=== PATIENT | male | born 1990 | race Caucasian/White ===

== ENCOUNTER 2022-10-04 21:34 | Emergency (ER) | payer OTHER, SELFPAY ==
[2022-10-04 21:45] VITALS: BP 129/70; PULSE 84; RESP 22; TEMP 36.2; O2SAT 98; BMI 45.2
--- NOTE | 2022-10-04 21:53 | ED_ITS ---
HPI - Abdominal Pain General Time Seen by Provider: 21:53 Date Seen: 10/04/22 Chief Complaint: Abdominal Pain Stated Complaint: Abdominal pain, L arm numbness Time Seen by Provider: 10/04/22 21:53 Source: patient and RN notes reviewed Mode of arrival: ambulatory Limitations: no limitations History of Present Illness HPI narrative: Patient is a 32-year-old male with history of kidney stones who comes to the emergency room for evaluation regarding the sudden onset of left lower quadrant pain and nausea. Patient notes a past history of kidney stones. He thinks this is similar but is not entirely sure. He notes that this pain is radiating into his left back in into his groin. When this happens he is writhing in pain. He has also had associated vomiting. He has not had any fever chills or dysuria. He has not noticed any blood in his urine. Patient's pain came on suddenly at approximately 2100 hours. He has not been able to take anything for pain. Related Data Allergies Allergy/AdvReac Type Severity Reaction Status Date / Time topiramate [From Topamax] AdvReac Verified 10/04/22 21:49 pomagranite AdvReac Uncoded 10/04/22 21:49 Review of Systems Status of ROS Reports: 6 or more systems reviewed and unremarkable except as noted in History and below Const Denies: fever or chills Cardio Denies: chest pain or shortness of breath with exertion Resp Denies: shortness of breath GI Reports: abdominal pain, nausea and vomiting; Denies: diarrhea Denies: painful urination or urinary frequency Musculo Reports: back pain PFSH PFSH Social History Smoking Status: Never smoker Do you use any of these nicotine containing products: None How often do you have a drink containing alcohol: never AUDIT-C Alcohol total score: 0 Non-prescribed substance use: denies use Exam Narrative: Exam Narrative: Patient is awake and in distress. He is trying to find a comfortable position as ruling out around the bed. Eyes are clear oral cavity moist mucous membranes. Heart rate tachycardic with normal rhythm lungs are clear bilaterally. Abdomen shows no tenderness with palpation. No CVA tenderness with percussion. Const: Vital Signs, click to edit/add: Vital Signs - 24 hr 10/04/22 21:45 10/04/22 23:00 10/04/22 23:21 Temperature 97.1 F L 98.4 F Pulse Rate [Pulse Oximeter] 84 71 Respiratory Rate 22 16 Blood Pressure [[facility]] 129/70 126/83 Pulse Oximetry 98 94 98 Oxygen Delivery Me thod Room Air Room Air Documenting provider has reviewed patient's vital signs: yes Course Course Hospital Course: Will place an IV and give Toradol 15 mg, Zofran 4 mg, 500 mL of normal saline. CT of the abdomen without contrast will be ordered. Urinalysis, CBC and basic panel is also ordered at this time. Reevaluation(s) Reevaluation #1: Patient noted to have continued pain and thus was given morphine 4 mg IV. This seemed to help his pain significantly. Vital Signs Vital signs: Initial Vital Signs Temperature 97.1 F L 10/04/22 21:45 Temperature Source Temporal Artery Scan 10/04/22 21:45 Pulse Rate 84 10/04/22 21:45 Respiratory Rate 22 10/04/22 21:45 Blood Pressure 129/70 10/04/22 21:45 Blood Pressure Mean 89 10/04/22 21:45 Blood Pressure Position Sitting 10/04/22 21:45 Pulse Oximetry 98 10/04/22 21:45 Oxygen Delivery Method Room Air 10/04/22 21:45 Vital Signs Temperature 97.1 F L 10/04/22 21:45 Pulse Rate 84 10/04/22 21:45 Respiratory Rate 22 10/04/22 21:45 Blood Pressure 129/70 10/04/22 21:45 Pulse Oximetry 98 10/04/22 21:45 Oxygen Delivery Method Room Air 10/04/22 21:45 Temperature 98.4 F 10/04/22 23:00 Pulse Rate 71 10/04/22 23:00 Respiratory Rate 16 10/04/22 23:00 Blood Pressure 126/83 10/04/22 23:00 Pulse Oximetry 98 10/04/22 23:21 Oxygen Delivery Method Room Air 10/04/22 23:00 MDM - Abdominal Pain MDM Narrative Medical decision making narrative: 1. Left ureteral colic with nephrolithiasis-patient is a 3 mm stone with associated hydronephrosis. Urinalysis without evidence of UTI and laboratory values are reassuring. Patient has pain noted to be controlled with Toradol Zofran and morphine. However patient has pain return before departure and he was given Dilaudid 0.5 mg IV. Fortunately he should be able to pass this stone at 3 mm in size. He states he has most of the medications at home. He will use Toradol 10 mg p.o. 3-4 times daily for max of 5 days for any pain. He will strain his urine. Flomax may restarted at 1 tablet daily. He is in need of oxycodone and he states this is waiting uses for his pain. I have given him a small amount of 10 tablets oxycodone 5 mg to be use 1 tablet Q 6 hours p.r.n.. He is in agreement with this plan. Denies a history of addictions. Do note on his [employer] VERIFICATION ENGINEER that he had tramadol earlier in the year but it does not appear to be a pattern. 2. Disposition-home at this time. Return for vomiting, worsening symptoms. Strain urine. For ongoing symptoms follow-up with primary MD for further urological consultation. For worsening symptoms return to the emergency room. Spoke briefly about the content of his stones any states in the past they have been calcium. Good hydration is prominent believe the primary deterrent from formation of stones. Medical Records Attestation: I reviewed the patient's medical records. Lab Data Attestation: I reviewed the patient's lab results. Labs: Lab Results 10/04/22 10/04/22 Range/Units 21:50 22:30 WBC 10.84 (4.50-11.00) K/uL RBC 5.38 (4.30-5.90) m/uL Hgb 15.9 (13.5-17.5) gm/dL Hct 46.0 (37.0-53.0) % MCV 86 (80-100) fL MCH 30 (26-34) pg MCHC 35 (32-36) gm/dL RDW Coeff of Britney 11.4 L (11.5-15.5) % Plt Count 375 (140-440) K/uL Neut % (Auto) 45.9 (42.0-72.0) % Lymph % (Auto) 45.5 H (20-44) % Gosper % (Auto) 6.9 (0.0-11.0) % Eos % (Auto) 0.7 (0.0-7.0) % Baso % (Auto) 0.4 (0.0-3.0) % Neut # (Auto) 4.98 (1.7-7.0) K/uL Lymph # (Auto) 4.90 H (0.90-2.90) K/uL Gosper # (Auto) 0.70 (0.00-0.90) K/UL Eos # (Auto) 0.08 (0.00-0.50) K/uL Baso # (Auto) 0.04 (0.00-0.30) K/uL Sodium 138 (135-149) mmol/L Potassium 3.6 (3.6-5.1) mmol/L Chloride 102 (96-114) mmol/L Carbon Dioxide 26 (20-32) mmol/L BUN 16 (5-24) mg/dL Creatinine 0.9 (0.5-1.5) mg/dL Estimated Creat Clear 121.67 Estimated GFR 116 ml/min Glucose 117 H (60-115) mg/dL Calcium 9.6 (8.4-10.6) mg/dL Troponin I < 0.01 L (0.01-0.04) ng/mL Urine Color Yellow (Yellow) Urine Appearance Cloudy A (Clear) Urine pH 6.0 (5.0-8.5) Ur Specific [place] >= 1.030 (1.000-1.030) Urine Protein 2+ A (Negative) Urine Glucose (UA) Negative (Negative) Urine Ketones Negative (Negative) Urine Blood 3+ A (Negative) Urine Nitrite Negative (Negative) Urine Bilirubin Negative (Negative) Urine Urobilinogen 0.2 (0.2-1.0) Ur Leukocyte Esterase Negative (Negative) Urine RBC 10-25 A (0-2) Urine WBC 0-2 (0-5) Ur Squamous Epith Cells Few (None-Few) Amorphous Sediment Few A (None) Urine Bacteria Few A (None) Urine Mucus Few A (None) Imaging Data CT scan - abdomen: My impression: 3.5 mm stone identified in the left ureter on CT. Radiologist's impression: Lower chest: Bibasilar subsegmental atelectasis. ABDOMEN: Liver: Normal attenuation. Gallbladder and biliary: Normal gallbladder without radiopaque stone. Normal caliber bile ducts. Spleen: Normal size and attenuation. Pancreas: The noncontrast pancreas is homogeneous in attenuation without peripancreatic inflammatory changes or ductal dilatation. Adrenal glands: Normal adrenal glands. Kidneys and ureters: Mild left-sided hydroureteronephrosis secondary to a 3 millimeter stone in the proximal left ureter.? No right-sided nephrolithiasis or hydroureteronephrosis. GI tract: The stomach is relatively decompressed. Normal caliber small and large bowel loops. Normal appendix. Vascular structures: Normal caliber abdominal aorta. Lymph nodes: No lymphadenopathy in the abdomen or pelvis by size criteria. Peritoneum: No free air, free fluid, or focal drainable fluid collection. PELVIS: Genitourinary system: Urinary bladder is relatively decompressed. SKELETAL STRUCTURES AND SOFT TISSUES: No suspicious lytic or blastic lesions. IMPRESSION: Mild left-sided hydroureteronephrosis secondary to a 3 millimeter stone in the proximal left ureter. Discharge Plan Discharge Clinical Impression: Colic, ureteral, Nephrolithiasis Patient Disposition: Home, Self-Care Condition: Improved Additional Instructions: For pain: Toradol 10 mg every 3-4 times daily for max total of 5 days. For pain not relieved by Toradol, oxycodone as directed. Please use sparingly as this can be addictive. Flomax as directed daily for smooth muscle relaxation and hopefully improved passage of the stone. Strain urine. Bring any stone that may past to your doctors. Follow-up if you have continued pain and feel you are not passing the stone. Return to the emergency room for fever, vomiting and worsening symptoms. Follow Up/Referrals: Provider,Not a Local [Primary Care Provider] - Stand Alone Forms: [facility] Info Instructions
--- NOTE | 2022-10-04 21:58 | CRLHL7_ITS ---
For Patients: As a result of the Century Cures Act, medical imaging exams and procedure reports are released immediately into your electronic medical record. You may view this report before your referring provider. If you have questions, please contact your health care provider. INDICATION: .Left-sided abdominal pain, history of stones TECHNIQUE: CT abdomen and pelvis without contrast. COMPARISON: None. FINDINGS: Lower chest: Bibasilar subsegmental atelectasis. ABDOMEN: Liver: Normal attenuation. Gallbladder and biliary: Normal gallbladder without radiopaque stone. Normal caliber bile ducts. Spleen: Normal size and attenuation. Pancreas: The noncontrast pancreas is homogeneous in attenuation without peripancreatic inflammatory changes or ductal dilatation. Adrenal glands: Normal adrenal glands. Kidneys and ureters: Mild left-sided hydroureteronephrosis secondary to a 3 millimeter stone in the proximal left ureter. No right-sided nephrolithiasis or hydroureteronephrosis. GI tract: The stomach is relatively decompressed. Normal caliber small and large bowel loops. Normal appendix. Vascular structures: Normal caliber abdominal aorta. Lymph nodes: No lymphadenopathy in the abdomen or pelvis by size criteria. Peritoneum: No free air, free fluid, or focal drainable fluid collection. PELVIS: Genitourinary system: Urinary bladder is relatively decompressed. SKELETAL STRUCTURES AND SOFT TISSUES: No suspicious lytic or blastic lesions. IMPRESSION: Mild left-sided hydroureteronephrosis secondary to a 3 millimeter stone in the proximal left ureter. Please note that all CT scans at this facility use dose modulation, iterative reconstruction, and/or weight-based dosing when appropriate to reduce radiation dose to as low as reasonably achievable. Dictated by Mingo Solomon MD @ 10/04/2022 11:09:46 PM (Electronically Signed)
[2022-10-04 22:06] LABS: Basophils Absolute Auto 0.04 K/uL (0.00-0.30); Basophils Percent Auto 0.4 % (0.0-3.0); Eosinophils Absolute Auto 0.08 K/uL (0.00-0.50); Eosinophils Percent Auto 0.7 % (0.0-7.0); Hemoglobin* 15.9 gm/dL (13.5-17.5); Immature Granulocytes Abs Auto 0.06 K/uL (0.00-0.30); Immature Granulocytes Pct Auto 0.6 %; Lymphocytes Percent Auto 45.5 % (20-44); Mean Corpuscular HGB Conc 35 gm/dL (32-36); Mean Corpuscular Hemoglobin 30 pg (26-34); Mean Corpuscular Volume 86 fL (80-100); Monocytes Percent Auto 6.9 % (0.0-11.0); Neutrophils Absolute Auto 4.98 K/uL (1.7-7.0); Neutrophils Percent Auto 45.9 % (42.0-72.0); Platelet Count* 375 K/uL (140-440); RDW Coefficient of Variation % 11.4 % (11.5-15.5); Red Blood Count 5.38 m/uL (4.30-5.90); White Blood Count* 10.84 K/uL (4.50-11.00)
[2022-10-04] MEDS: 0.9 % SODIUM CHLORIDE 500 ML 500 ML IV (22:08)
[2022-10-04] MEDS: MORPHINE 4 MG/ML INJ IVP (22:09)
[2022-10-04] MEDS: ONDANSETRON 2 MG/ML inj 4 MG IVP (22:09)
[2022-10-04 22:20] LABS: Chloride* 102 mmol/L (96-114); Slide Review Reflex No; Sodium* 138 mmol/L (135-149)
[2022-10-04 22:21] LABS: Potassium* 3.6 mmol/L (3.6-5.1)
[2022-10-04 22:23] LABS: Carbon Dioxide* 26 mmol/L (20-32); Creatinine* 0.9 mg/dL (0.5-1.5); Est. Creatinine Clearance* 121.67; Estimated Glomerular Filt Rate 116 ml/min
[2022-10-04 22:24] LABS: Blood Urea Nitrogen* 16 mg/dL (5-24); Calcium* 9.6 mg/dL (8.4-10.6); Glucose* 117 mg/dL (60-115)
[2022-10-04 22:41] LABS: Troponin I* < 0.01 ng/mL (0.01-0.04)
[2022-10-04 22:58] LABS: Appearance Urine Cloudy (Clear); Bilirubin Urine Negative (Negative); Blood Urine 3+ (Negative); Color Urine Yellow (Yellow); Glucose Urine Negative (Negative); Ketones Urine Negative (Negative); Leukocyte Esterase Urine Negative (Negative); Nitrite Urine Negative (Negative); Protein Urine 2+ (Negative); Specific Gravity Urine >= 1.030 (1.000-1.030); Urobilinogen Urine 0.2 (0.2-1.0)
[2022-10-04 23:00] VITALS: BP 126/83; PULSE 71; RESP 16; TEMP 36.9; O2SAT 94
[2022-10-04 23:21] VITALS: O2SAT 98
[2022-10-04] MEDS: HYDROmorphone 0.5 mg/0.5 ml inj IVP (23:29)
[2022-10-04 23:44] LABS: Amorphous Sediment Urine Few; Bacteria Urine Few; Mucus Urine Few; Squamous Epithelial Cell Urine Few (None-Few); WBC Urine 0-2 (0-5)
== END 2022-10-04 23:46 | disposition home or self-care (01) ==
PROVIDERS: Emergency Provider Family Medicine
DX: N23 Unspecified renal colic (principal); N20.0 Calculus of kidney
CPT/HCPCS: 36415; 74176; 80048; 81001; 84484; 85025; 87086; 94761; 96374; 96375; 99284; J1170; J2270; J2405; J7120

== ENCOUNTER 2025-02-20 15:21 | Emergency (ER) | payer OTHER, SELFPAY ==
--- OUTSIDE RECORDS SUMMARY | 2025-02-20 15:22 | XMS_ITS | Clinical Summary ---
Author Organization [facility] Address [address] [place] [address] Care Team Providers Care Animal Rehabilitator Name Role Phone Cely Diaz MD Primary Care Provider Allergies Active Allergy Reactions Criticality Noted Date Comments Pomegranate Hives 06/25/2023 Topiramate *Unknown 01/23/2022 Medications busPIRone 15 mg tabletIndication s:Anxiety Take 1 Tablet (15 mg) by mouth two times daily. 200 Tablet 3 09/07/2024 Active sertraline 25 mg tabletIndication s:Anxiety,Depres tamera, major, in remission Take 1 Tablet (25 mg) by mouth once daily in the morning. 100 Tablet 3 09/07/2024 Active Active Problems Problem Noted Date Diagnosed Date History of alcohol abuse 01/23/2022 Overview (01/23/2022): Sober since 10/2019 Kidney stones 01/23/2022 Overview (01/23/2022): Calcium oxalate? Morbid obesity with BMI of 45.0-49.9, adult 12/27 Depression, major, in remission 01/23/2022 Anxiety 01/23/2022 Encounters Date Type Department Care Team Description 01/22/2025 1:00 PM CDT Ancillary Procedure [facility] [address] [place] [address] 01/22/2025 Travel 01/07/2025 12:20 PM CDT Phone [place] [facility] [address] [place] [address] Cely Diaz MD Penis/Scrotum Problem (Scrotal lump x6-12 months); Phone Visit 01/07/2025 Travel from Last 3 Months Immunizations Immunization Administration Dates Next Due COVID-19 VACCINE SPIKEVAX (M ODERNA 50MCG/0.5ML) 12YO+ PFS 03/27/2024,06/25/2023 INFLUENZA, IIV3 PF (AGE >= 6 MO) 03/27/2024 Influenza, IIV4 06/25/2023 Tdap 06/25/2023 Family History Medical History Relation Name Comments Anxiety disorder Brother Clifford Depression Brother Clifford Hypertension Brother Clifford Alcoholism Father Brain cancer Father Benign tumors Hernia Father Osteoarthritis Father Esophageal cancer Maternal Grandfather Hypertension Maternal Grandfather Mental illness Maternal Grandfather Diabetes Maternal Grandmother Hypertension Maternal Grandmother Mental illness Maternal Grandmother Brain cancer Maternal Uncle Hypertension Mother Osteoarthritis Mother Supraventricular tachycardia Mother Alcoholism Paternal Grandfather Cancer-pancreatic Paternal Grandmother Relation Name Status Comments Brothanjana Horton Alive Father Alive Maternal Grandfather Alive Maternal Grandmother Alive Maternal Uncle Mother Alive Paternal Grandfather Paternal Grandmother Social History Tobacco Use Types Packs/Day Years Used Date Smoking Tobacco: Never Smokeless Tobacco: Never Tobacco Cessation:Counseling Given: Yes Alcohol Use Standard Drinks/Week Comments Not Currently 0 (1 standard drink = 0.6 oz pur e alcohol) Sober since 2019 PHQ-2 Answer Date Recorded PHQ-2 TOTAL SCORE 1 09/07/2024 Social Connections Answer Date Recorded Do you often feel lonely or isolated from those around you? 0 09/07/2024 Financial Resource Strain Answer Date R ecorded Difficulty of Paying Living Expenses 3 09/07/2024 Difficulty of Paying Living Expenses Not on file 09/07/2024 Food Insecurity Answer Date Recorded Do you worry your food will run out before you are able to buy more? 1 09/07/2024 Transportation Needs Answer Date Record ed Does lack of transportation keep you from medica l appointments? 1 09/07/2024 Does lack of transportation keep you from work, meetings or getting things that you need? 1 09/07/2024 Housing Stability Answer Date Recorded What is your housing situation today? 1 09/07/2024 Utilities Answer Date Recorded Do you have trouble paying f or utilities (for example, heat, electricity, water, phone)? 1 09/07/2024 Sex and Gender Information Value Date Recorded Sex Assigned at Not on file Legal Sex Male 10:20 AM CDT Gender Identity Not on file Sexual Orientation Not on file Occupation Industry Job Start Date Job End Date [employer] Not on file Not on file Not on file Obstetrics History Last Filed Vital Signs Vital Sign Reading Time Taken Comments Blood Pressure 130/76 09/07/2024 8:45 AM CDT Pulse 68 09/07/2024 8:45 AM CDT Temperature 37.6 C (99.7 F) 04/17/2022 3:51 PM STUDY MANAGER Respiratory Rate - - Oxygen Saturation 97% 09/07/2024 8:45 AM CDT Inhaled Oxygen Concentration - - Weight 162.3 kg (357 lb 12.8 oz) 09/07/2024 8:45 AM CDT Height 181 cm (5' 11.26) 09/07/2024 8:45 AM CDT Body Mass Index 49.54 09/07/2024 8:45 AM CDT Plan of Treatment Health Maintenance Due Date Last Done Comments Hepatitis B series for 19+ (1 of 3 - 19+ 3-dose series) 2009 HPV series for age 9-45 (1 - 3-dose SCDM series) 2017 Influenza Vaccine (#1) 2025 03/27/2024, 2023 BMI (ht and wt on same day) for age 18+ 09/07/2025 09/07/2024, 07/29/2023, 06/25/2023, Additional history exists Depression screening for age 12+ 09/07/2025 09/07/2024, 07/29/2023, 06/25/2023, Additional history exists Lipids for age 35-44 09/07/2029 09/07/2024, 06/25/2023, 01/23/2022 Tetanus booster 06/25/2033 06/25/2023 RSV vaccine for adults or (1 - 1-dose 75+ series) 2065 HIV for age 15-65 Completed 06/25/2023 Hepatitis C screening for age 18-79 Completed 06/25/2023 COVID-19 vaccine series Completed 03/27/20 24, 06/25/2023, 07/28/2021, Additional history exists Pneumococcal series for age 6-49 Aged Out No longer eligible based on patient's age to complete this topic Procedures Procedure Name Priority Date/Time Associated Diagnosis Comments US SCROTUM WITH DUPLEX Routine 01/22/2025 1:18 PM CDT Testicular lump LIPID PANEL W REFLEX MEASURED LDL Routine 09/07/2024 9:06 AM CDT Screening, lipid ANTI HIV 1/2 Routine 06/25/2023 9:04 AM STUDY MANAGER Encounter for screening for HIV ANTI HCV Routine 06/25/2023 9:04 AM STUDY MANAGER Need for hepatitis C screening test from Last 3 Months or Most Recently Relevant to Health Maintenance Results * US SCROTUM W DUPLEX (01/22/2025 1:18 PM CDT) Anatomical Region Laterality Modality SCROTUM, TESTES Ultrasound 01/22/2025 1:35 PM CDT Impressions 01/22/2025 1:35 PM CDT 1.1 cm left epididymal head cyst. Bilateral testicular microlithiasis. No suspicious testicular lesion. Dictated by Mingo West MD @ 01/22/2025 1:35:29 PM (Electronically Signed) Narrative 01/22/2025 1:35 PM CDT For Patients: As a result of the Century Cures Act, medical imaging exams and procedure reports are released immediately into your electronic medical record. You may view this report before your referring provider. If you have questions, please contact your health care provider. INDICATION: Testicular lump COMPARISON: none TECHNIQUE: Villasenor scale imaging was performed of the scrotum. In addition color Doppler and spectral Doppler analysis was performed of the testes. FINDINGS: The testes demonstrate normal arterial and venous blood flow on color Doppler and spectral Doppler analysis. No suspicious testicular mass. Scattered echogenic foci within each testicle. The right testis measures 4.4 x 3.1 x 2.2 cm in size and the left testis measures 4.0 x 2.5 x 2.3 cm. Cyst within the left epididymis measures 8 x 11 x 6 millimeters. Normal right epididymis. There is no evidence of a hydrocele or varicocele. Procedure Note Mingo West MD - 01/22/2025 For Patients: As a result of the Cures Act, medical imagingexams and procedure reports are released immediately into your electronicmedical record. You may view this report before your referring provider.If you have questions, please contact your health care provider. INDICATION: Testicular lump COMPARISON: none TECHNIQUE: Villasenor scale imaging was performed of the scrotum. In addition color Dopplerand spectral Doppler analysis was performed of the testes. FINDINGS: The testes demonstrate normal arterial and venous blood flow on colorDoppler and spectral Doppler analysis. No suspicious testicular mass.Scattered echogenic foci within each testicle. The right testis measures4.4 x 3.1 x 2.2 cm in size and the left testis measures 4.0 x 2.5 x 2.3cm. Cyst within the left epididymis measures 8 x 11 x 6 millimeters.Normal right epididymis. There is no evidence of a hydrocele orvaricocele. IMPRESSION: 1.1 cm left epididymal head cyst. Bilateral testicular microlithiasis. Nosuspicious testicular lesion. Dictated by Mingo West MD @ 01/22/2025 1:35:29 PM (Electronically Signed) us Cely Diaz MD Final R esult * (ABNORMAL) LIPID PANEL W REFLEX MEASURED LDL (09/07/2024 9:06 AM CDT) CHOLESTEROL, TOTAL 206(H) <200 mg/dL [facility] HDL CHOLESTEROL 43 > OR = 40 mg/dL [facility] TRIGLYCERIDES 101 <150 mg/dL [facility] LDL-CHOLESTEROL 142(H) mg/dL (calc) [facility] Comment: Reference range: <100 Desirable range <100 mg/dL for primary prevention; <70 mg/dL for patients with CHD or diabetic patients with > or = 2 CHD risk factors. LDL-C is now calculated using the Darren-Marcum calculation, which is a validated novel method providing better accuracy than the Friedewald equation in the estimation of LDL-C. Darren SS et al. SAMSON. 2013;310(19): 6644-6588 (http://education.Slicethepie/faq/HYL031) CHOL/HDLC RATIO 4.8 <5.0 (calc) [facility] NON HDL CHOLESTEROL 163(H) <130 mg/dL (calc) [facility] Comment: For patients with diabetes plus 1 major ASCVD risk factor, treating to a non-HDL-C goal of <100 mg/dL (LDL-C of <70 mg/dL) is considered a therapeutic option. Blood BLOOD SPECIMEN / Unknown 09/07/2024 9:06 AM CDT 09/07/2024 9:06 AM CDT Cely Diaz MD CHEMISTRY Final R esult Performing Organization Address [facility] Co de Phone Number [facility] [address] [phone], [facility] [address] [place] [phone] * ANTI HCV (06/25/2023 9:04 AM STUDY MANAGER) HEPATITIS C ANTIBODY Non-Reacti ve Non-React jorge 06/25/2023 6:07 PM STUDY MANAGER [facility] Comment:Please note, per www .CDC.gov: If a patient is known to be at high risk of HCV infection, or is symptomatic, and the physician's suspicion of HCV infection is high, HCV RNA testing is often employed and is of diagnostic value, even after an initial negative anti-HCV test result. Blood BLOOD SPECIMEN / Unknown Venipuncture / Unknown 06/25/2023 9:04 AM STUDY MANAGER 06/25/2023 9:04 AM STUDY MANAGER Cely Diaz MD SEND OUTS Final R esult Performing Organization Address [facility]/ZIP Co de Phone Number [facility] [address] [place] [address], [place] * ANTI HIV 1/2 (06/25/2023 9:04 AM STUDY MANAGER) HIV-1/HIV-2 SCREEN Non-Reacti ve Non-Reacti ve 06/25/2023 6:16 PM STUDY MANAGER [facility] Comment:HIV-1 p24 and HIV-1/ HIV-2 Ab Not Detected. Blood BLOOD SPECIMEN / Unknown Venipuncture / Unknown 06/25/2023 9:04 AM STUDY MANAGER 06/25/2023 9:04 AM STUDY MANAGER us Cely Diaz MD SEND OUTS Final R esult [facility] [address] [place] [id number], [place] from Last 3 Months or Most Recently Relevant to Health Maintenance Insurance [place] [id number] Care Teams Animal Rehabilitator Relationship Specialty [place] [id number] [facility] [place], [place] [phone] PCP - General Family Practice 06/25/23
[2025-02-20 15:41] VITALS: BP 133/89; PULSE 89; RESP 20; TEMP 35.8; O2SAT 97; BMI 48.4
--- NOTE | 2025-02-20 15:59 | ED.ABDPAIN ---
HPI - Abdominal Pain General Time Seen by Provider: 16:00 Date Seen: 02/20/25 Chief Complaint: Abdominal Pain Stated Complaint: Kidney stone, stomach pain Time Seen by Provider: 02/20/25 15:55 Source: patient, family, RN notes reviewed and old records reviewed Mode of arrival: ambulatory Limitations: no limitations History of Present Illness HPI narrative: 35-year-old male who comes in today with abdominal pain. Pain with left lower quadrant abdominal pain started on Saturday, accompanied by nausea vomiting. The little bit better history of them pain became worse today. Decreased urine output and decreased stools as well. No fever chills, no dysuria hematuria. Did vomit today and said there were ?black flecks. Notes he took some tramadol for this with some improvement. Related Data Home Medications ?Medication ?Instructions ?Recorded ?Confirmed buspirone 15 mg tablet mg PO 02/20/25 sertraline 25 mg tablet 25 mg PO DAILY 02/20/25 02/20/25 Previous Rx's ?Medication ?Instructions ?Recorded tamsulosin 0.4 mg capsule (Flomax) 0.4 mg PO QHS #14 caps 02/20/25 Allergies Allergy/AdvReac Type Severity Reaction Status Date / Time pomegranate Allergy Unknown Verified 02/20/25 15:44 topiramate (From Topamax) AdvReac Verified 02/20/25 15:37 PFSH [facility] Social History Smoking Status: Never smoker Do you use any of these nicotine containing products: None How often do you have a drink containing alcohol: never AUDIT-C Alcohol total score: 0 Non-prescribed substance use: denies use Exam Narrative: Exam Narrative: General: Well-developed and well-nourished, no acute distress Head: Atraumatic and normocephalic Eyes: Pupils are equal reactive, extraocular motions intact, conjunctiva clear ENT: External nose and ears are normal, posterior pharynx without erythema or exudate Neck: No midline cervical tenderness, full spontaneous range of motion the neck, trachea midline, no adenopathy Heart: Regular rate and rhythm no murmurs or thrills Lungs: Clear to auscultation bilaterally without wheezes or crackles Abdomen: Soft, left lower quadrant tenderness, nondistended with active bowel sounds Musculoskeletal: No tenderness, deformity, or edema Neurologic: Awake, alert, and oriented x3, no gross focal neurologic deficits, cranial nerves intact as tested Psych: Mood and affect are appropriate Skin: No rashes Const: Vital Signs, click to edit/add: Vital Signs - 24 hr 02/20/25 15:41 Temperature 96.4 F L Pulse Rate [Pulse Oximeter] 89 Respiratory Rate 20 Blood Pressure [Ri ght Upper Arm] 133/89 Pulse Oximetry 97 Oxygen Delivery Me thod Room Air Course Course ED Course: Reviewed prior emergency department note from 10/04/2022 patient was seen with renal colic. Also reviewed most recent primary care visit from August 2024 which was for a follow-up, patient was on Zoloft and BuSpar at that time and doing well. Patient presents today with left lower quadrant abdominal pain, also nausea vomiting. History of kidney stones, this feels similar. On exam here, appears uncomfortable, vital is stable, left lower quadrant tenderness. Consider ureteral stone, also consider diverticulitis, constipation or colitis possible but less likely. Labs ordered along with Toradol, Zofran, fluids, and CT scan. Reevaluation(s) Time of Reevaluation #1: 16:27 Reevaluation #1: CT abdomen pelvis independently interpreted by me with left hydronephrosis and hydroureter related to a 4-5 mm proximal ureteral stone, no other acute findings. Time of Reevaluation #2: 17:21 Reevaluation #2: Labs independently interpreted by me with normal CBC, no leukocytosis. Time of Reevaluation #3: 18:09 Reevaluation #3: Patient recheck, pain is well controlled. We discussed findings. Urinalysis and panel interpreted by me not consistent with infection. Stable for discharge with outpatient follow-up with urology. Vital Signs Vital signs: Initial Vital Signs Temperature 96.4 F L 02/20/25 15:41 Temperature Source Temporal Artery Scan 02/20/25 15:41 Pulse Rate 89 02/20/25 15:41 Respiratory Rate 20 02/20/25 15:41 Blood Pressure 133/89 02/20/25 15:41 Blood Pressure Mean 103 02/20/25 15:41 Blood Pressure Position Sitting 02/20/25 15:41 Pulse Oximetry 97 02/20/25 15:41 Oxygen Delivery Method Room Air 02/20/25 15:41 Vital Signs Temperature 96.4 F L 02/20/25 15:41 Pulse Rate 89 02/20/25 15:41 Respiratory Rate 20 02/20/25 15:41 Blood Pressure 133/89 02/20/25 15:41 Pulse Oximetry 97 02/20/25 15:41 Oxygen Delivery Method Room Air 02/20/25 15:41 Temperature 96.4 F L 02/20/25 15:41 Pulse Rate 89 02/20/25 15:41 Respiratory Rate 20 02/20/25 15:41 Blood Pressure 133/89 02/20/25 15:41 Pulse Oximetry 97 02/20/25 15:41 Oxygen Delivery Method Room Air 02/20/25 15:41 Medications Administered Medications: Discontinued Medications Generic Name Dose Route Start Last Admin Trade Name Freq PRN Reason Stop Dose Admin Sodium Chloride 1,000 mls @ 1,000 mls/hr 02/20/25 16:15 02/20/25 17:47 0.9 % Sodium Chloride 1000 Ml IV 02/20/25 17:14 Infused .Q1H RAYMOND Infusion Ketorolac Tromethamine 15 mg 02/20/25 16:15 02/20/25 16:29 Ketorolac 15 Mg/Ml Inj IVP 02/20/25 16:16 15 mg ONCE ONE Administration Ondansetron HCl 4 mg 02/20/25 16:15 02/20/25 16:29 Ondansetron 2 Mg/Ml Inj IVP 02/20/25 16:16 4 mg ONCE ONE Administration MDM - Abdominal Pain Lab Data Labs: Lab Results 02/20/25 02/20/25 Range/Units 16:16 16:30 WBC 10.03 (4.50-11.00) K/uL RBC 5.34 (4.30-5.90) m/uL Hgb 15.7 (13.5-17.5) gm/dL Hct 45.1 (37.0-53.0) % MCV 85 (80-100) fL MCH 29 (26-34) pg MCHC 35 (32-36) gm/dL RDW Coeff of Britney 11.0 L (11.5-15.5) % Plt Count 349 (140-440) K/uL Neut % (Auto) 80.9 H (42.0-72.0) % Lymph % (Auto) 10.3 L (20-44) % [place] % (Auto) 8.3 (0.0-11.0) % Eos % (Auto) 0.1 (0.0-7.0) % Baso % (Auto) 0.3 (0.0-3.0) % Neut # (Auto) 8.10 H (1.7-7.0) K/uL Lymph # (Auto) 1.00 (0.90-2.90) K/uL [place] # (Auto) 0.80 (0.00-0.90) K/UL Eos # (Auto) 0.01 (0.00-0.50) K/uL Baso # (Auto) 0.03 (0.00-0.30) K/uL Abs Immat Gran (auto) 0.01 (0.00-0.30) K/uL Imm/Tot Granulo (auto) 0.1 % Sodium 136 (135-149) mmol/L Potassium 4.0 (3.6-5.1) mmol/L Chloride 100 (96-114) mmol/L Carbon Dioxide 29 (20-32) mmol/L Anion Gap 7 (7-15) mEq/L BUN 14 (5-24) mg/dL Creatinine 1.0 (0.5-1.5) mg/dL Estimated Creat Clear 109.81 Estimated GFR 101 ml/min Glucose 123 H (60-115) mg/dL Calcium 9.0 (8.4-10.6) mg/dL Urine Color Dark yellow (Yellow) Urine Appearance Slightly Cloudy A (Clear) Urine pH 7.5 (5.0-8.5) Ur Specific [place] 1.020 (1.000-1.030) Urine Protein Trace A (Negative) Urine Glucose (UA) Negative (Negative) Urine Ketones Negative (Negative) Urine Blood Negative (Negative) Urine Nitrite Negative (Negative) Urine Bilirubin Negative (Negative) Urine Urobilinogen 1.0 (0.2-1.0) Ur Leukocyte Esterase Negative (Negative) Urine RBC 0-2 (0-2) Urine WBC 0-2 (0-5) Ur Squamous Epith Cells Few (None-Few) Urine Bacteria Few A (None) Urine Mucus Few A (None) Discharge Plan Discharge Clinical Impression: Calculus of left ureter Condition: Stable Instructions: Ureteral Stones (ED) Additional Instructions: Take Tylenol 1000 mg every 6 hours, alternating every 3 hours with ibuprofen 400 mg Contact Urology for a follow-up appointment Drink to thirst Start Flomax as prescribed Activity Level: Activity as Tolerated Discharge Diet: Regular Prescriptions: New tamsulosin [Flomax] 0.4 mg capsule 0.4 mg PO QHS Qty: 14 0RF No Action sertraline 25 mg tablet 25 mg PO DAILY buspirone 15 mg tablet PO Follow Up/Referrals: Provider,Not a Local [Non-Staff, Family Practice]
--- NOTE | 2025-02-20 16:16 | CRLHL7_ITS ---
For Patients: As a result of the Century Cures Act, medical imaging exams and procedure reports are released immediately into your electronic medical record. You may view this report before your referring provider. If you have questions, please contact your health care provider. INDICATION: Left lower quadrant pain. History of stones. TECHNIQUE: CT abdomen and pelvis without contrast. COMPARISON: Report from prior CT abdomen/pelvis dated 10/04/2022, images were not available at the time the study was interpreted. FINDINGS: Lower chest: No focal consolidation. Evaluation of solid organs is limited secondary to lack of IV contrast administration. Liver: No suspicious focal hepatic lesion. Gallbladder and bile ducts: Unremarkable. Pancreas: Unremarkable. Spleen: Unremarkable. Adrenal glands: Unremarkable. Kidneys: 0.5 cm calculus in the proximal left ureter, which results in mild left hydronephrosis. Left perinephric inflammation is present. Punctate nonobstructing calculus in the lower pole of the right kidney. Retroperitoneum: No lymphadenopathy. Bowel and mesentery: Bowel is not obstructed. No significant ascites, no pneumoperitoneum. Bladder: Unremarkable for degree of distention. Reproductive organs: No prostatomegaly. Pelvic lymph nodes: No lymphadenopathy. Vessels: Unremarkable for unenhanced study. Abdominal wall: No acute abdominal wall abnormality. Bones: Multilevel degenerative changes of the spine. No suspicious/aggressive focal osseous lesion. IMPRESSION: 1. Obstructing 0.5 cm calculus in the proximal left ureter, resulting in mild left hydronephrosis. Left perinephric inflammation is present, which may be reactive versus infectious in etiology. Recommend correlation with urinalysis. 2. Additional punctate nonobstructing calculus in the lower pole of the right kidney. Please note that all CT scans at this facility use dose modulation, iterative reconstruction, and/or weight-based dosing when appropriate to reduce radiation dose to as low as reasonably achievable. Dictated by Uriel Yu MD @ 02/20/2025 5:27:21 PM (Electronically Signed)
[2025-02-20] MEDS: ONDANSETRON 2 MG/ML inj 4 MG IVP (16:29)
[2025-02-20 16:50] LABS: Hematocrit* 45.1 % (37.0-53.0); Hemoglobin* 15.7 gm/dL (13.5-17.5); Immature Granulocytes Abs Auto 0.01 K/uL (0.00-0.30); Immature Granulocytes Pct Auto 0.1 %; Mean Corpuscular HGB Conc 35 gm/dL (32-36); Mean Corpuscular Hemoglobin 29 pg (26-34); Mean Corpuscular Volume 85 fL (80-100); RDW Coefficient of Variation % 11.0 % (11.5-15.5); Red Blood Count* 5.34 m/uL (4.30-5.90); White Blood Count* 10.03 K/uL (4.50-11.00)
[2025-02-20 16:59] LABS: Lymphocytes Absolute Auto 1.00 K/uL (0.90-2.90); Slide Review Reflex No
[2025-02-20 17:02] LABS: Chloride* 100 mmol/L (96-114); Potassium* 4.0 mmol/L (3.6-5.1); Sodium* 136 mmol/L (135-149)
[2025-02-20 17:05] LABS: Anion Gap 7 mEq/L (7-15); Blood Urea Nitrogen* 14 mg/dL (5-24); Calcium* 9.0 mg/dL (8.4-10.6); Carbon Dioxide* 29 mmol/L (20-32); Creatinine* 1.0 mg/dL (0.5-1.5); Est. Creatinine Clearance* 109.81; Estimated Glomerular Filt Rate 101 ml/min; Glucose* 123 mg/dL (60-115)
[2025-02-20 17:47] LABS: Appearance Urine Slightly Cloudy (Clear)
== END 2025-02-20 18:20 | disposition home or self-care (01) ==
PROVIDERS: Emergency Provider Family Medicine; PCP Family Medicine
DX: N20.1 Calculus of ureter (principal)
CPT/HCPCS: 36415; 74176; 80048; 81001; 85025; 87086; 96374; 96375; 99284; J1885; J2405; J7030